=== PATIENT | male | born 1980 | race Caucasian/White ===

== ENCOUNTER 2018-01-24 10:18 | Inpatient (IN) | payer OTHER ==
[~2018-01-24] VITALS: Ht 167.6 cm; Wt 61.7 kg
[2018-01-24 12:00] VITALS: BP 126/84
[2018-01-24] MEDS ORDERED: 'CLONIDINE0.1 MG PO (12:18)
[2018-01-24] MEDS ORDERED: TRAZODONE50 MG PO (12:18)
[2018-01-24] MEDS ORDERED: LAMICTAL100 MG PO (12:19)
[2018-01-24] MEDS ORDERED: OMEPRAZOLE D/R20 MG PO (12:19)
[2018-01-24] MEDS ORDERED: ABILIFY5 MG PO (12:19)
[2018-01-24 12:40] LABS: BASO # 0.1 10*3/uL (0.0-0.1); BASO % 0.6 % (0.0-1.0); EOS # 0.3 10*3/uL (0.0-0.4); EOS % 3.2 % (1.0-4.0); HEMATOCRIT 45.7 % (42.0-52.0); HEMOGLOBIN 15.1 g/dl (14.0-18.0); LYMPH # 3.5 10*3/uL (1.3-4.4); MEAN CELL VOLUME 97.2 fl (80.0-94.0); MEAN CORPUSCULAR HGB 32.1 pg (27.0-31.0); MONO # 0.7 10*3/uL (0.1-1.0); MONO % 7.2 % (3.0-9.0); NEUT # 5.1 10*3/uL (2.3-7.9); NEUT % 52.7 % (47.0-73.0); PLATELET COUNT AUTOMATED 288 10*3/uL (130-400); RED CELL DISTRI WIDTH 12.3 % (0-14.5); WHITE BLOOD COUNT 9.7 10*3/uL (4.8-10.8)
[2018-01-24 13:00] LABS: BILIRUBIN NEGATIVE (NEGATIVE); BLOOD NEGATIVE (NEGATIVE); CLARITY SL CLOUDY (CLEAR); COLOR YELLOW (YELLOW); GLUCOSE NEGATIVE (NEGATIVE); KETONE NEGATIVE (NEGATIVE); LEUKO ESTERASE NEGATIVE (NEGATIVE); NITRITE NEGATIVE (NEGATIVE); PH 5.5 (5.0-9.0); SPECIFIC GRAVITY >= 1.030 (1.005-1.030); UROBILINOGEN 0.2 E.U./dl (0.2-1.0)
[2018-01-24 13:03] LABS: ALBUMIN 3.5 gm/dl (3.1-4.5); ALKALINE PHOSPHATASE 76 U/L (45-117); BUN 10 mg/dl (7-24); CHLORIDE 108 mmol/L (98-107); CREATININE 0.88 mg/dL (0.70-1.30); POTASSIUM 4.4 mmol/L (3.5-5.1); SGOT/AST 9 IU/L (3-35); SGPT/ALT 21 U/L (12-78); SODIUM 142 mmol/L (136-145); TOTAL PROTEIN 6.7 gm/dL (6.4-8.2)
[2018-01-24 13:06] LABS: URINE AMPHETAMINES < 1000 (1000ng/ml); URINE BARBITURATES < 200 (200ng/ml); URINE BENZODIAZEPINES < 200 (200ng/ml); URINE CANNABINOIDS (THC) > 50 (50ng/ml); URINE COCAINE > 300 (300ng/ml); URINE METHADONE < 300 (300ng/ml); URINE OPIATES < 300 (300ng/ml)
[2018-01-24 13:08] LABS: ETHYL ALCOHOL < 3.0 mg/dl (<3)
[2018-01-24 13:09] LABS: URINE PHENCYCLIDINE < 25 (25ng/ml)
[2018-01-24 13:12] LABS: BACTERIA TRACE; CALCIUM OXALATE CRYSTALS 1+; MUCOUS 2+
[2018-01-24 16:00] VITALS: BP 116/61
[2018-01-24 20:00] VITALS: BP 108/51
[2018-01-25] VITALS: BP 120/73
[2018-01-25 08:00] VITALS: BP 106/64
[2018-01-25 12:00] VITALS: BP 106/75
[2018-01-25 16:00] VITALS: BP 112/54
[2018-01-25 20:00] VITALS: BP 132/65
[2018-01-26] VITALS: BP 113/65
[2018-01-26 08:00] VITALS: BP 114/51
[2018-01-26 12:00] VITALS: BP 113/72
[2018-01-26 16:00] VITALS: BP 132/69
[2018-01-26 20:00] VITALS: BP 99/64
[2018-01-27] VITALS: BP 108/73
[2018-01-27 08:00] VITALS: BP 106/55
[2018-01-27 12:00] VITALS: BP 110/60
[2018-01-27] MEDS ORDERED: ATARAX,VISTARIL50 MG PO (13:04)
[2018-01-27] MEDS ORDERED: LIBRIUM5 MG PO (13:17)
== END 2018-01-27 16:30 | disposition home or self-care (01) | DRG 895 ==
LOC: 5E 10:18
PROVIDERS: Registered Nurse
PROC: HZ34ZZZ Individual Counseling for Substance Abuse Treatment, Interpersonal (ICD-10-PCS; principal; 2018-01-24)
DX: F11.23 Opioid dependence with withdrawal (principal); F31.9 Bipolar disorder, unspecified; F12.10 Cannabis abuse, uncomplicated; F19.10 Other psychoactive substance abuse, uncomplicated; F17.200 Nicotine dependence, unspecified, uncomplicated; G25.81 Restless legs syndrome; F14.90 Cocaine use, unspecified, uncomplicated; Z71.6 Tobacco abuse counseling; Z59.0 Homelessness; Z79.899 Other long term (current) drug therapy; Z79.82 Long term (current) use of aspirin

== ENCOUNTER 2020-05-21 11:11 | Inpatient (IN) | payer MEDICAID ==
[~2020-05-21] VITALS: Ht 170.1 cm; Wt 61.0 kg
[~2020-05-21 11:11] MED LIST: 'CLONIDINE0.1 MG PO; ABILIFY5 MG PO; ATARAX,VISTARIL50 MG PO; LAMICTAL100 MG PO; LIBRIUM5 MG PO; OMEPRAZOLE D/R20 MG PO; TRAZODONE50 MG PO
[2020-05-21 12:40] VITALS: BP 126/84
--- NOTE | 2020-05-21 13:05 | NUR ---
MSADMTime: 1230 A 39 year old MALE admitted to under services of CARMEL SORIANO DO. Pt. arrived via ambulatory from [place]. Chief complaint: . YOANDY GUEVARA L
--- NOTE | 2020-05-21 15:13 | NUR ---
PATIENT MEETS NEW MARTHA DAVIS. CINA=[id number] PATIENT WANTS TO FOLLOW UP WITH CHANGE INCKehinde FOR HIS AFTERCARE PLAN. EMBER REVELES B.A. MANAGER PACKAGING
[2020-05-21 16:00] VITALS: BP 128/93
--- NOTE | 2020-05-21 16:18 | NUR ---
PATTIE ALVARADO FOR C/O ANXIETY. WILL MONITOR.
--- NOTE | 2020-05-21 17:20 | NUR ---
VISTARIL EFFECTIVE PER PT.
[2020-05-21 19:24] LABS: URINE AMPHETAMINES > 1000 (1000ng/ml); URINE BARBITURATES < 200 (200ng/ml); URINE BENZODIAZEPINES < 200 (200ng/ml); URINE CANNABINOIDS (THC) < 50 (50ng/ml); URINE COCAINE < 300 (300ng/ml); URINE METHADONE < 300 (300ng/ml); URINE OPIATES < 300 (300ng/ml)
[2020-05-21 19:26] LABS: URINE PHENCYCLIDINE < 25 (25ng/ml)
[2020-05-21 20:00] VITALS: BP 142/70; BP 167/67
--- NOTE | 2020-05-21 20:25 | NUR ---
WENT OVER PATIENTS MEDICATIONS WITH HIM. PATIENT STATES HE TAKES ABILIFY 5MG AT NIGHT AND LAMICTAL 200MG AT NIGHT WELL. HE STATES THE PRESCRIPTION IS FOR 100MG BID, BUT STATES HIS DOCTOR STATED HE CAN TAKE 200MG AT ONCE AT NIGHT. OK PER DR. PEREZ TO CHANGE
[2020-05-21] MEDS ORDERED: LAMICTAL200 MG PO (20:27)
--- NOTE | 2020-05-21 21:02 | NUR ---
PATIENT REQUESTS THAT HE TAKES ALL HIS MEDICATIONS AT 11PM
--- NOTE | 2020-05-21 23:07 | NUR ---
NOTIFIED DR. WARREN THAT THE PATIENT IS REQUESTING A NICOTINE PATCH INSTEAD OF THE NICOTINE GUM AND THAT THE PATIENT SMOKES ALMOST 2 PACKS OF CIGARETTES DAILY.
--- NOTE | 2020-05-21 23:23 | NUR ---
ORDER RECIEVED FROM DR. WARREN FOR 21MG NICOTINE PATCH
--- NOTE | 2020-05-21 23:38 | NUR ---
PRN NICODERM PATCH GIVEN FOR PT COMPLAINTS OF URGE TO SMOKE. CALL LIGHT WITHIN REACH, WILL MONITOR
[2020-05-22] VITALS: BP 134/88; BP 135/97
--- NOTE | 2020-05-22 | NUR ---
24 HR chart check completed.
--- NOTE | 2020-05-22 01:46 | NUR ---
SPOKE WITH DR. PEREZ. NOTIFIED HER THAT PATIENT DOES NOT HAVE TYLENOL OR MOTRIN ON FOR PAIN. SHE STATED IT WAS OK TO PULL FROM NEW VISION STANDING ORDERS
--- NOTE | 2020-05-22 01:53 | NUR ---
PRN ROBAXIN, VISTARIL AND BENTYL GIVEN FOR PT COMPLAINTS OF MUSCLE ACHES, ANXIETY AND ABDOMINAL CRAMPING. CALL LIGHT WITHIN REACH, WILL MONITOR
--- NOTE | 2020-05-22 01:56 | NUR ---
PRN VISTARIL GIVEN FOR PT COMPLAINTS OF ANXIETY. CALL LIGHT WITHIN REACH, WILL MONITOR
--- NOTE | 2020-05-22 02:50 | NUR ---
PRN MEDICATION APPEARS EFFECTIVE, PT SLEEPING
[2020-05-22 05:48] LABS: BASO # 0.1 10*3/uL (0.0-0.1); BASO % 0.6 % (0.0-1.0); EOS # 0.4 10*3/uL (0.0-0.4); EOS % 3.4 % (1.0-4.0); HEMATOCRIT 49.5 % (42.0-52.0); LYMPH # 4.6 10*3/uL (1.3-4.4); LYMPH % 45.1 % (27.0-41.0); MEAN CORPUSCULAR HGB 31.2 pg (27.0-31.0); MEAN CORPUSCULAR HGB CONC 33.5 g/dl (33.0-37.0); MONO % 9.9 % (3.0-9.0); NEUT # 4.2 10*3/uL (2.3-7.9); NEUT % 40.8 % (47.0-73.0); PLATELET COUNT AUTOMATED 357 10*3/uL (130-400); RED BLOOD COUNT 5.32 10*6/uL (4.50-5.90); RED CELL DISTRI WIDTH 12.2 % (0-14.5); WHITE BLOOD COUNT 10.2 10*3/uL (4.8-10.8)
[2020-05-22 06:05] LABS: ALBUMIN 3.7 gm/dl (3.1-4.5); ALKALINE PHOSPHATASE 84 U/L (45-117); BUN 16 mg/dl (7-24); CHLORIDE 108 mmol/L (98-107); CHOLESTEROL 205 mg/dL (<200); CREATININE 1.03 mg/dL (0.70-1.30); FREE T4 1.27 ng/dl (0.76-1.46); HDL CHOLESTEROL 57 mg/dl (40-60); LDL CHOLESTEROL 138 mg/dL (9-159); POTASSIUM 4.3 mmol/L (3.5-5.1); SGOT/AST 8 IU/L (3-35); SGPT/ALT 17 U/L (12-78); SODIUM 139 mmol/L (136-145); TOTAL PROTEIN 7.1 gm/dL (6.4-8.2); TRIGLYCERIDES 48 mg/dl (<150); VLDL CHOLESTEROL 10 mg/dL (6-40)
[2020-05-22 07:38] LABS: ACT PARTIAL THROMBO TIME 30.7 SECONDS (20.0-32.1); INTERNATIONAL NORM RATIO 1.1 (2.0-3.5)
[2020-05-22 08:00] VITALS: BP 131/91
--- NOTE | 2020-05-22 08:00 | NUR ---
IN TO PATIENT'S ROOM. PT IS AWAKE, ALERT AND ORIENTED. STATES HE IS HAVING SOME ABDOMINAL DISCOMFORT AND RESTLESSNESS. PT IS PLEASANT AND COOPERATIVE. RESPIRATIONS ARE EASY AND REGULAR ON ROOM AIR. NO SOB OR DISTRESS NOTED. PT ABLE TO REPOSITION SELF AND IS ENCOURAGED TO DO SO. WILL CONTINUE TO MONITOR.
[2020-05-22 08:01] LABS: VITAMIN D, 25-HYDROXY 32.5 ng/mL (30-100)
--- NOTE | 2020-05-22 08:35 | NUR ---
PT IS COMPLAINING OF ABDOMINAL PAIN AND CRAMPING. PATIENT ALSO STATES THAT HE IS HAVING MUSCLE SPASMS AND RESTLESSNESS. PRN BENTYL, REQUIP, ROBAXIN AND TYLENOL AT THIS TIME. WILL MONITOR FOR EFFECTIVENESS.N
--- NOTE | 2020-05-22 09:15 | NUR ---
PT STATES THAT PRN MEDICATIONS WERE EFFECTIVE. HE HAS RELIEF FROM SYMPTOMS.
--- NOTE | 2020-05-22 10:50 | NUR ---
PT IS IN HIS ROOM COLORING. NO STATED COMPLAINTS AT THIS TIME. PRN VISTARIL CONSIDERED EFFECTIVE.
--- NOTE | 2020-05-22 10:59 | NUR ---
PT STATES HE IS ANXIOUS. PT IS SEEN PACING IN HIS ROOM AND IN THE HALLS. PRN VISTARIL ADMINISTERED AT THIS TIME. WILL MONITOR FOR EFFECTIVENESS.
[2020-05-22 12:00] VITALS: BP 120/75
--- NOTE | 2020-05-22 14:18 | NUR ---
CALL FROM [employer]UR[employer] ASKING ABOUT CINA SCORE. ABSTRACT MANAGER EXPLAINED.
[2020-05-22 16:00] VITALS: BP 134/76
--- NOTE | 2020-05-22 16:00 | NUR ---
PATIENT IS UP AMBULATING IN HALLS. STEADY GAIT ASSESSED. PT IS WEARING APPROPRIATE MASK. NO STATED COMPLAINTS. WILL CONTINUE TO MONITOR.
--- NOTE | 2020-05-22 16:21 | NUR ---
[facility] STAFF IN TO SEE PATIENT. PATIENT WANTS TO FOLLOW UP WITH MEDICATION-ASSISTED TREATMENT FOR HIS AFTERCARE PLAN. [facility] STAFF PROVIDED PATIENT WITH REFERRAL OPTIONS. PATIENT REPORTED THAT HIS GIRLFRIEND WILL PROVIDE TRANSPORTION HOME AFTER DISCHARGE. EMBER REVELES B.A. GEOTHERMAL INSTALLER
[2020-05-22 20:00] VITALS: BP 119/69
--- NOTE | 2020-05-22 21:35 | NUR ---
PRN REQUIP,ROBAXIN,VISTARIL AND BENTYL GIVEN AT THIS TIME AT PATIENT REQUEST FOR ANXIETY, LEG CRAMPS, RESTLESS LEGS AND ANXIETY. A&O X4, CALL LIGHT WITHIN REACH, WILL CONTINUE TO MONITOR.
--- NOTE | 2020-05-22 22:20 | NUR ---
PATIENT UP AND AMBULATING IN THE HALLWAY STATED THAT PRN MEDICATIONS WERE EFFECTIVE AT THIS TIME.
[2020-05-23] VITALS: BP 116/69
--- NOTE | 2020-05-23 02:08 | NUR ---
PATIENT RESTING IN BED IN A POSITION OF COMFORT AT THIS TIME WITH EYES CLOSED. RESPIRATIONS EASY AND NON-LABORED AT THIS TIME, CALL LIGHT WITHIN REACH. WILL CONTINUE TO MONITOR.
[2020-05-23 08:00] VITALS: BP 123/80
--- NOTE | 2020-05-23 10:00 | NUR ---
LYING IN WITH EYES OPEN. PLEASANT AND COOPERATIVE. NO C/O VOICED. SKIN WARM, DRY, AND INTACT. LUNGS CLEAR. DENIES COUGH. ROOM AIR. ASSESSMENT COMPLETE. TOOK PO MEDS WITHOUT DIFFICULTY. CALL LIGHT IN REACH.
[2020-05-23 12:00] VITALS: BP 122/75
[2020-05-23 16:00] VITALS: BP 128/72
--- NOTE | 2020-05-23 16:00 | NUR ---
NO C/O VOICED. PLEASANT/COOPERATIVE. GAIT STEADY. CALL LIGHT IN REACH.
[2020-05-23 20:00] VITALS: BP 129/73
[2020-05-24] VITALS: BP 119/73
[2020-05-24 08:00] VITALS: BP 124/82
--- NOTE | 2020-05-24 08:45 | NUR ---
PATIENT HAS NO C/O WITHDRAWAL SYMPTOMS THIS MORNING, DENIES ANY PAIN, STATES READY TO GET DISCHARGED THIS MORNING, LAST DOSE OF SUBUTEX TAPER ADMINISTERED SCHEDULED.
[2020-05-24] MEDS ORDERED: ATARAX,VISTARIL50 MG PO (09:53)
--- NOTE | 2020-05-24 10:04 | NUR ---
Discharge instructions reviewed with patient. Patient receptive and verbalizes understanding. Follow-up care arranged. Written instructions given to patient. SILVANO CHARLES
--- NOTE | 2020-05-24 10:07 | NUR ---
PATIENT DISCHARGED TO [facility], AMBULATORY, FOR TRANSPORT HOME BY PRIVATE VEHICLE.
== END 2020-05-24 10:01 | disposition home or self-care (01) | DRG 897 ==
LOC: 5E 11:11
PROVIDERS: Internal Medicine; ADMIT Internal Medicine; ATTEND Internal Medicine
DX: F11.23 Opioid dependence with withdrawal (principal); R65.10 Systemic inflammatory response syndrome (SIRS) of non-infectious origin without acute organ dysfunction; F31.9 Bipolar disorder, unspecified; F17.210 Nicotine dependence, cigarettes, uncomplicated; F19.10 Other psychoactive substance abuse, uncomplicated; R45.1 Restlessness and agitation; E83.41 Hypermagnesemia; Z79.899 Other long term (current) drug therapy